=== PATIENT | male | born 1995 | race Caucasian/White ===

== ENCOUNTER 2017-06-06 14:14 | Emergency (ER) | payer BC, OTHER ==
[2017-06-06] MEDS ORDERED: KETOROLAC TROMETHAMINE 60 MG/2 ML VIAL IM ONE ×3 (16:07→16:13)
--- NOTE | 2017-06-06 16:13 | ERNOTE ---
Back Pain ER HPI Date of Service: 06/06/17 Presenting Symptoms: other - R. back pain Time Seen by Provider: 06/06/17 15:39 Source: patient Exam Limitations: no limitations Immunizations: IMMUNIZATION HX Immunizations Up to Date Yes History of Influenza Vaccine No Hx Pneumococcal Vaccination No Allergies/Adverse Reactions: Allergies No Known Allergies Allergy (Unverified 08/26/12 10:54) Home Medications: HOME MEDICATIONS Cyclobenzaprine HCl [Flexeril] 10 mg PO TID PRN #30 tab 06/06/17 [Last Taken Unknown] Ibuprofen [Motrin] 800 mg PO .Q8H PRN #30 tablet 06/06/17 [Last Taken Unknown] Narrative: 21yo, M, presents to ER for R. lower back pain. Reports pain present when he woke up this am. No known injury. Pain improvement with rest, but worsens with any movements. He attempted to go to work, but had to leave early due to pain. Denies any loss of bowel or bladder. Date (Duration): 06/06/17 Time (Timing): 08:00 Timing: Reports: constant Location of pain: Reports: lower back - R. side Activities at Onset: Reports: none Recent Injury?: Reports: no Modifying Factors - (Improves): Reports: other - rest Modifying Factors - (Worsens): Reports: other - twisting movements Associated Symptoms: Denies: fever/chills, constipation/incontinence, nausea/ vomiting, problems urinating, difficulty walking, lightheadedness, numbess/ weakness in legs Review of Systems - Review of Systems Constitutional: Absent: fever, chills, weakness Respiratory: Absent: shortness of breath, cough Gastrointestinal/Abdominal: Absent: nausea, vomiting, diarrhea, constipation, abdominal pain Genitourinary: Absent: frequency, pain, dysuria, hematuria, other - no incontinence Musculoskeletal: Present: back pain - R. lower, muscle pain - R. lower back. Absent: joint pain, joint swelling Skin: Absent: rash Neurological: Absent: dizziness/light-headedness, numbness - Patient's Past Medical History Patient History - Medical: No pertinent hx Patient History - Cardiac/Respiratory: No pertinent hx Patient History - Cancer: No Hx of Cancer Patient History - Surgical Procedures: T & A Patient History - Other: None - Social History Living Situations: home Abuse History: No History of abuse Psych History: No pertinent hx Smoking Status: Never smoker Have you smoked in the past 12 months: No Alcohol Use: rarely Drug Use: none - Immunizations Immunizations Up to Date: Yes Hx Pneumococcal Vaccination: No History of Influenza Vaccine: No Physical Exam - Physical Exam General Appearance: Present: wd/wn, alert, no apparent distress Neck: Present: normal inspection, nontender Respiratory: Present: no respiratory distress, normal breath sounds, no accessory muscle use. Absent: rales, rhonchi, wheezing Cardiovascular/Chest: Present: regular rate, rhythm, no murmur Back Exam: Present: normal inspection, normal range of motion - pain with twising movements, no CVA tenderness, no vertebral tenderness, other - tenderness along muscles R. lumbar region Neurological Exam: Present: alert, oriented Skin Exam: Present: normal color, warm/dry ED Progress - Vital Signs Patient's Vital Signs:: I have reviewed the patient's vital signs. Vital Signs: Vital Signs 06/06/17 06/06/17 06/06/17 14:28 15:08 15:35 Temperature 37.1 C Pulse Rate 87 100 96 Respiratory 17 14 Rate Blood Pressure 130/52 77/52 86/62 O2 Sat by Pulse 97 96 98 Oximetry - Progress/Reassessment Chief Complaint: Back Pain Departure Clinical Impression: Lumbar strain Qualifiers: Encounter type: initial encounter Qualified Code(s): S39.012A - Strain of muscle, fascia and tendon of lower back, initial encounter - Departure Disposition: Home self-care Condition: Good Instructions: Low Back Sprain With Rehab-SportsMed Additional Instructions: Do not drive or operate machinery while on muscle relaxer Ice/heat as needed for pain Epsom salt bath soaks as needed Seek re-evaluation if symptoms worsen or do not improve
[2017-06-06 16:26] VITALS: BP 124/55
== END 2017-06-06 16:30 | disposition home or self-care (01) ==
LOC: ER 14:14
DX: S39.012A Strain of muscle, fascia and tendon of lower back, initial encounter (principal)